=== PATIENT | male | born 1940 | race Caucasian/White ===

== ENCOUNTER 2016-05-31 17:12 | Inpatient (IN) | payer OTHER, MEDICARE ==
[~2016-05-31] VITALS: Ht 177.8 cm; Wt 96.9 kg
[~2016-05-31 17:12] MED LIST: ACTIGALL300 MG PO; AMARYL4 MG PO; ARICEPT10 MG PO; ASPIRIN325 MG PO; ATIVAN2 MG PO; ATROVENT 00.5 MG/2.5 IH; BUDESONIDE IH; BUDESONIDE0.25 MG/2 IH; BUMEX PO; BUMEX1 MG PO; ERGOCALCIF50000 UNIT PO; FISH OIL 1,0001 EAC7 PO; FISH OIL 1,2001 EAC4 PO; FLOMAX0.4 MG PO; FOLBIC RF TABL1 EACH PO; GLUCOPHAGE1000 MG PO; HUMALOG100 UNIT/1 SC; HUMULIN N100 UNITS/ SC; HYDROCHLOROTH12.5 M3 PO; IMODIUM MS REL1 EACH PO; LASIX20 MG PO; LISINOPRIL20 MG PO; LOPRESSOR100 M1 PO; LOPRESSOR50 MG PO; LORAZEPAM2 MG PO; MOTRIN800 MG PO; NORTRIPTYLINE H50 MG PO; NORVASC5 MG PO; OMEGA 3 1,0001 EACH PO; PERFOROMIS20 MCG/2 M IH; PROSCAR5 MG PO; PULMICORT0.5 MG/21 IH; RHINOCORT AQUA8.6 G1 BOTH NARES; SIMVASTATIN40 MG PO; SPIRIVA1 INHALATI IH; TYLENOL EXTRA500 MG PO; URSODIOL300 MG PO; VITAMIN B122500 MCG PO; VITAMIN D2000 INTUN PO; [UNRECOGNIZED DRUG - OTHER] IH
[2016-05-31 17:54] LABS: HEMATOCRIT 25.5 % (38.0-50.0); MCH 30.2 PG (29.0-34.0); MCHC 31.8 G/DL (30.0-36.0); MCV 95.1 FL (86-99); MEAN PLAT.VOLUME 10.7 uM^3 (9.0-12.4); PLATELET COUNT 155 K/uL (156-360); RBC DIS.WIDTH-SD 45.8 % (39-53); RED BLOOD COUNT 2.68 M/uL (4.00-5.50); WHITE BLOOD COUNT 11.9 K/uL (4.1-10.2)
[2016-05-31 18:05] LABS: CHLORIDE 99 mEq/L (99-109); POTASSIUM 4.7 mEq/L (3.7-5.4); SODIUM 139 mEq/L (136-147)
[2016-05-31 18:07] LABS: GLUCOSE 268 mg/dL (70-99)
[2016-05-31 18:09] LABS: ANION GAP 15 MEQ/L (2-14)
[2016-05-31 18:11] LABS: GFR ESTIMATE (CALCULATED) 31 mL/min/
[2016-05-31 18:12] LABS: UREA NITROGEN (BUN) 34 mg/dL (9-23)
[2016-05-31 18:16] LABS: TROP-I INTERPRETATION NEGATIVE; TROPONIN-I < 0.01 ng/mL (0.0-0.30)
[2016-05-31 18:51] LABS: EOSINOPHIL (%) 2.4 % (0-5); EOSINOPHIL COUNT 0.3 K/uL (0-0.3); IMMATURE GRANULOCYTE (%) 0.3 % (0.0-0.7); IMMATURE GRANULOCYTE COUNT 0.3 K/uL; MONOCYTE (%) 5.5 % (3-12); MONOCYTE COUNT 0.7 K/uL (0-0.8); NEUTROPHIL COUNT 7.8 K/uL (1.8-6.4)
[2016-05-31 18:51] LABS: ADD MIUA? NO; BILIRUBIN MODERATE; BLOOD NEGATIVE; COLOR DK YELLOW ((YELLOW)); GLUCOSE (STRIP) NEGATIVE; KETONES 15; LEUKOCYTES NEGATIVE; NITRITE NEGATIVE; PH, URINE 5.5 (5-8); PROTEIN (STRIP) 30; SPECIFIC GRAVITY 1.022 (1.000-1.030); UCUL ADDED? NO
[2016-05-31 18:57] LABS: SERUM ETHYL ALCOHOL < 10 mg/dL; TOTAL BILIRUBIN 1.5 mg/dL (0.0-1.0)
[2016-05-31 18:59] LABS: ALKALINE PHOSPHATASE 93 IU/L (3-129)
[2016-05-31 19:01] LABS: DIRECT BILIRUBIN 0.9 mg/dL (0.0-0.3)
[2016-05-31 19:01] LABS: ICTOTEST NEGATIVE
[2016-05-31] MEDS ORDERED: LISINOPRIL10 MG PO (21:27)
[2016-05-31] MEDS ORDERED: LITE COAT ASPI325 M1 PO (21:27)
[2016-05-31] MEDS ORDERED: PULMICORT FLE180 MCG IH (21:28)
[2016-05-31] MEDS ORDERED: VITAMIN D32000 UNI1 PO (21:30)
[2016-05-31] MEDS ORDERED: LIVALO4 MG PO (21:31)
[2016-05-31] MEDS ORDERED: FUROSEMIDE20 MG PO (21:31)
[2016-05-31] MEDS ORDERED: PRAZOSIN HCL5 MG PO (21:32)
[2016-05-31 23:01] LABS: BASE EXCESS 1.5 mEq/L (-3 to +3); BICARBONATE 26.6 mEq/L (22-26); CARBOXY HGB 3.2 % (0-5); METHEMOGLOBIN 1.2 % (0-1.5); PCO2 43 mm Hg (35-45); PO2 85 mm Hg (80-100)
[2016-05-31 23:02] LABS: COMMENTS - BLOOD GASES C+; DEVICE NC; MECHANICAL RATE 16 resp/min; O2 FLOW 4 L/MIN; SITE RR
[2016-05-31 23:33] LABS: HEMATOCRIT 33.8 % (38.0-50.0); MCV 93.9 FL (86-99)
[2016-05-31 23:39] LABS: INTER. NORMALIZED RATIO 1.2; PROTHROMBIN TIME 11.8 (9.2-11.2); PTT 41.8 (25-32)
[2016-06-01 00:14] VITALS: BP 141/64
[2016-06-01 04:00] VITALS: BP 141/59
[2016-06-01 07:34] LABS: Estimated Average Glucose 166 mg/dL (70-123); HEMOGLOBIN A1c (GLYCOHEMOGLOB) 7.4 % HGB (Below 5.7)
[2016-06-01 07:34] LABS: HEMATOCRIT 33.2 % (38.0-50.0); MCH 29.6 PG (29.0-34.0); MCHC 31.6 G/DL (30.0-36.0); MCV 93.5 FL (86-99); RBC DIS.WIDTH-CV 14.2 % (11.8-14.6); RBC DIS.WIDTH-SD 48.9 % (39-53)
[2016-06-01 07:35] LABS: RED BLOOD COUNT 3.55 M/uL (4.00-5.50); WHITE BLOOD COUNT 5.4 K/uL (4.1-10.2)
[2016-06-01 07:38] LABS: ALKALINE PHOSPHATASE 79 IU/L (3-129); ANION GAP 11 MEQ/L (2-14); CHLORIDE 99 MEQ/L (99-109); GFR ESTIMATE (CALCULATED) 39 mL/min/; GLUCOSE 354 mg/dL (70-99); SAMPLE HEMOLYSIS CHECK 0; SAMPLE ICTERIC CHECK 0; SAMPLE LIPEMIA CHECK 0; SODIUM 136 MEQ/L (136-147); TOTAL BILIRUBIN 1.1 MG/DL (0.0-1.0); UREA NITROGEN (BUN) 33 mg/dL (9-23)
[2016-06-01 07:42] LABS: POTASSIUM 5.7 MEQ/L (3.7-5.4)
[2016-06-01 08:09] LABS: HDL CHOLESTEROL 23 MG/DL (Desirable>=40); IRON 26 MCG/DL (35-150); LDL CHOLESTEROL 73 mg/dL (Desirable<100); NON-HDL CHOLESTEROL 99 mg/dL (Desirable<160); TOTAL CHOLESTEROL 122 mg/dL (Desirable<200); TRIGLYCERIDES 131 MG/DL (Normal: <150)
[2016-06-01 08:14] VITALS: BP 131/63
[2016-06-01 08:19] LABS: FERRITIN 450 NG/ML (22-322)
[2016-06-01 08:28] LABS: PLATELET COUNT UNABLE TO REPORT K/uL (156-360)
[2016-06-01 12:00] VITALS: BP 119/64
[2016-06-01 14:07] LABS: ANION GAP 21 MEQ/L (2-14); CHLORIDE 96 MEQ/L (99-109); GFR ESTIMATE (CALCULATED) 35 mL/min/; SAMPLE HEMOLYSIS CHECK 0; SAMPLE ICTERIC CHECK 0; SAMPLE LIPEMIA CHECK 0; SODIUM 137 MEQ/L (136-147); UREA NITROGEN (BUN) 38 mg/dL (9-23)
[2016-06-01 14:31] LABS: GLUCOSE 497 mg/dL (70-99)
[2016-06-01 14:50] LABS: POC NON-PRINT COM 1 ND
[2016-06-01 15:52] LABS: HDL CHOLESTEROL 27 MG/DL (Desirable>=40); LDL CHOLESTEROL 89 mg/dL (Desirable<100); NON-HDL CHOLESTEROL 116 mg/dL (Desirable<160); TOTAL CHOLESTEROL 143 mg/dL (Desirable<200); TRIGLYCERIDES 135 MG/DL (Normal: <150)
[2016-06-01 16:00] VITALS: BP 132/66
[2016-06-01 17:52] LABS: GLUCOSE 329 mg/dL (70-99)
[2016-06-01 20:22] VITALS: BP 110/61
[2016-06-01 21:35] LABS: POINT-OF-CARE METER ID UU14174225
[2016-06-02] VITALS: BP 108/47
[2016-06-02 04:17] VITALS: BP 115/85
[2016-06-02 07:46] VITALS: BP 102/56
[2016-06-02 09:02] LABS: HEMATOCRIT 32.4 % (38.0-50.0); MCH 29.9 PG (29.0-34.0); MCHC 32.7 G/DL (30.0-36.0); MCV 91.3 FL (86-99); RBC DIS.WIDTH-CV 13.8 % (11.8-14.6); RBC DIS.WIDTH-SD 46.4 % (39-53); RED BLOOD COUNT 3.55 M/uL (4.00-5.50)
[2016-06-02 09:09] LABS: WHITE BLOOD COUNT 7.5 K/uL (4.1-10.2)
[2016-06-02 09:24] LABS: ANION GAP 11 MEQ/L (2-14); CHLORIDE 97 MEQ/L (99-109); GFR ESTIMATE (CALCULATED) 39 mL/min/; GLUCOSE 340 mg/dL (70-99); POTASSIUM 4.6 MEQ/L (3.7-5.4); SAMPLE HEMOLYSIS CHECK 0; SAMPLE ICTERIC CHECK 0; SAMPLE LIPEMIA CHECK 0; SODIUM 136 MEQ/L (136-147); UREA NITROGEN (BUN) 48 mg/dL (9-23)
[2016-06-02 09:55] LABS: MEAN PLAT.VOLUME 11.2 uM^3 (9.0-12.4)
[2016-06-02 09:57] LABS: PLATELET COUNT 135 K/uL (156-360)
[2016-06-02 11:11] VITALS: BP 116/62
[2016-06-02 23:54] VITALS: BP 112/65
[2016-06-03 06:36] LABS: POINT-OF-CARE METER ID UU14174225
[2016-06-03 08:01] LABS: HEMATOCRIT 32.3 % (38.0-50.0); MCH 29.5 PG (29.0-34.0); MCHC 31.9 G/DL (30.0-36.0); MCV 92.6 FL (86-99); MEAN PLAT.VOLUME 11.1 uM^3 (9.0-12.4); PLATELET COUNT 154 K/uL (156-360); RBC DIS.WIDTH-CV 14.3 % (11.8-14.6); RBC DIS.WIDTH-SD 48.1 % (39-53); RED BLOOD COUNT 3.49 M/uL (4.00-5.50); WHITE BLOOD COUNT 6.5 K/uL (4.1-10.2)
[2016-06-03 08:10] VITALS: BP 139/71
[2016-06-03 08:28] LABS: ANION GAP 9 MEQ/L (2-14); CHLORIDE 103 MEQ/L (99-109); GFR ESTIMATE (CALCULATED) 45 mL/min/; POTASSIUM 4.2 MEQ/L (3.7-5.4); SAMPLE HEMOLYSIS CHECK 0; SAMPLE ICTERIC CHECK 0; SAMPLE LIPEMIA CHECK 0; UREA NITROGEN (BUN) 36 mg/dL (9-23)
[2016-06-03 08:37] LABS: GLUCOSE 88 mg/dL (70-99); SODIUM 143 MEQ/L (136-147)
[2016-06-03 09:19] LABS: TROP-I INTERPRETATION NEGATIVE; TROPONIN-I < 0.01 ng/mL (0.0-0.30)
[2016-06-03 16:40] VITALS: BP 130/69
[2016-06-03 22:41] VITALS: BP 128/64
[2016-06-04] VITALS: BP 126/62
[2016-06-04 06:59] LABS: HEMATOCRIT 34.5 % (38.0-50.0); MCH 29.9 PG (29.0-34.0); MCHC 31.9 G/DL (30.0-36.0); MCV 93.8 FL (86-99); MEAN PLAT.VOLUME 10.7 uM^3 (9.0-12.4); PLATELET COUNT 155 K/uL (156-360); RBC DIS.WIDTH-CV 14.2 % (11.8-14.6); RBC DIS.WIDTH-SD 48.5 % (39-53); RED BLOOD COUNT 3.68 M/uL (4.00-5.50); WHITE BLOOD COUNT 5.6 K/uL (4.1-10.2)
[2016-06-04 07:26] LABS: ANION GAP 12 MEQ/L (2-14); CHLORIDE 100 MEQ/L (99-109); GFR ESTIMATE (CALCULATED) 49 mL/min/; GLUCOSE 215 mg/dL (70-99); POTASSIUM 4.5 MEQ/L (3.7-5.4); SAMPLE HEMOLYSIS CHECK 0; SAMPLE ICTERIC CHECK 0; SAMPLE LIPEMIA CHECK 0; SODIUM 141 MEQ/L (136-147); UREA NITROGEN (BUN) 28 mg/dL (9-23)
[2016-06-04 08:05] VITALS: BP 124/55
[2016-06-04] MEDS ORDERED: SPIRIVA RESPIMAT4 GM IH (10:49)
== END 2016-06-04 15:45 | disposition home health service (06) | DRG 70 ==
LOC: EME 17:12 → EDOF 22:51 → 5SOUTH 22:51
PROVIDERS: Emergency Medicine; Hospitalist; Physician Assistant Medical
DX: G93.41 Metabolic encephalopathy (principal); E11.00 Type 2 diabetes mellitus with hyperosmolarity without nonketotic hyperglycemic-hyperosmolar coma (NKHHC); F33.9 Major depressive disorder, recurrent, unspecified; N17.9 Acute kidney failure, unspecified; J96.10 Chronic respiratory failure, unspecified whether with hypoxia or hypercapnia; J90 Pleural effusion, not elsewhere classified; J44.1 Chronic obstructive pulmonary disease with (acute) exacerbation; J44.0 Chronic obstructive pulmonary disease with (acute) lower respiratory infection; J98.11 Atelectasis; D69.6 Thrombocytopenia, unspecified; I12.9 Hypertensive chronic kidney disease with stage 1 through stage 4 chronic kidney disease, or unspecified chronic kidney disease; N18.3 Chronic kidney disease, stage 3 (moderate); I73.9 Peripheral vascular disease, unspecified; E66.01 Morbid (severe) obesity due to excess calories; I13.10 Hypertensive heart and chronic kidney disease without heart failure, with stage 1 through stage 4 chronic kidney disease, or unspecified chronic kidney disease; G47.33 Obstructive sleep apnea (adult) (pediatric); E87.5 Hyperkalemia; D63.1 Anemia in chronic kidney disease; I65.21 Occlusion and stenosis of right carotid artery; E78.5 Hyperlipidemia, unspecified; Z95.1 Presence of aortocoronary bypass graft; I25.10 Atherosclerotic heart disease of native coronary artery without angina pectoris; Z99.81 Dependence on supplemental oxygen; N40.0 Benign prostatic hyperplasia without lower urinary tract symptoms; Z87.891 Personal history of nicotine dependence; J20.9 Acute bronchitis, unspecified; K76.0 Fatty (change of) liver, not elsewhere classified; Z68.30 Body mass index [BMI] 30.0-30.9, adult
CPT/HCPCS: 36600; 70450; 70549; 70551; 71020; 71250; 74176; 80048; 80048 91; 80053; 80061; 80076; 81003; 82140; 82272; 82607; 82728; 82803; 82948; 83036; 83540; 83605; 84443; 84484; 84999; 85014; 85018; 85025; 85027; 85610; 85730; 92523 GN; 92526 GN; 92610 GN; 93005; 94640; 94640 76; 94799; 99202; 99281; 99285; C9113; G0480; J0456; J0696; J1630; J1644; J1815; J1940; J2060; J2765; J2920; J2930; J3486; J7030; J7050; J7512